=== PATIENT | male | born 1990 | race Hispanic/Latino ===

== ENCOUNTER 2025-04-14 23:03 | Emergency (ER) | payer SELFPAY ==
[2025-04-14 23:07] VITALS: BP 155/106
[2025-04-15 00:44] VITALS: BMI 27.8
[2025-04-15 00:46] VITALS: BP 144/95
[2025-04-15 00:50] LABS: Hematocrit 41.8 % (39.0-52.0); Hemoglobin 15.1 g/dL (13.0-18.0); Mean Corp Hgb Conc. 36.1 g/dL (33.0-37.0); Mean Corpuscular Volume 85.8 fL (80.0-94.0); Mean Platelet Volume 9.6 fL (7.4-10.4); Platelet Count 243 10^3/uL (130-400); Red Blood Cell Count 4.87 10^6/uL (4.70-6.10); Red Cell Dist. Width 11.6 % (11.5-14.5); White Blood Cell Count 10.3 10^3/uL (4.8-10.8)
[2025-04-15 01:03] LABS: Blood Urea Nitrogen 9 mg/dl (9-20); Calcium 9.8 mg/dl (8.4-10.2); Carbon Dioxide 26 mmol/L (22-30); Chloride 106 mmol/L (98-107); Estimated Creatinine Clearance > 125 ml/min; Glucose 98 mg/dl (70-99); Potassium 3.9 mmol/L (3.5-5.1); Sodium 141 mmol/L (135-145); eGFR > 60.00
--- NOTE | 2025-04-15 01:56 | ED.GENMED ---
History of Present Illness
General
Chief Complaint: Male Genito-Urinary Symptoms
Time Seen by Provider: 04/15/25 00:01
History of Present Illness
History of Present Illness:
Note:
CHIEF COMPLAINT(S)
Penile pain with a warm sensation during urination.
HISTORY OF PRESENT ILLNESS
The patient is a 35-year-old male who presents with penile pain. The onset of the pain occurred recently, beginning as mild and non-specific but becoming more pronounced today. The pain is primarily localized on the left side of the penis. The
patient describes the pain as superficial rather than deep and denies any recent trauma to the area. He reports no discharge, bleeding, or scrotal pain and notes that urination sometimes results in a warm sensation, though it does not exacerbate the
pain. The patient admits to using condoms consistently during sexual encounters, with a possibility of oral contact with two partners.
REVIEW OF SYSTEMS
- Genitourinary: Penile pain localized to the side, no discharge, occasional warm sensation during urination, no scrotal pain.
- Dermatological: No visible rash or redness on the skin of the penis.
PHYSICAL EXAM
- Genital Examination: No visible rash or redness observed on the penis.
- Nursing notes reviewed and vital signs reviewed.
PLAN
- Initiate urinalysis to assess for possible infection or other abnormalities in the urine.
DIFFERENTIAL DIAGNOSIS
The Differential Diagnosis includes, in no particular order and is not limited to:
1. Urinary Tract Infection
2. Urethritis
3. Genital Herpes
4. Peyronies Disease
5. Trauma (though patient denies this)
6. Contact Dermatitis
7. Balanitis
8. Sexually Transmitted Infection
9. Epididymitis (despite no scrotal pain reported)
10. Prostatitis
Disposition:
SUMMARY OF ENCOUNTER
A 35-year-old male presented to the emergency department with left-sided penile pain. He reported no discharge, bleeding, or scrotal pain, and emphasized consistent condom use, except during oral sex. The patient denied any recent trauma and noted
no visible rash or sores. A physical examination confirmed no obvious abnormalities such as discharge, rash, or sores, and revealed a full range of motion of the penis without any scrotal pain or suprapubic tenderness.
INDEPENDENT INTERPRETATION OF TESTS
My independent interpretation of the lab work is that it is 100% normal.
PLAN
Initiate urinalysis to assess for possible infection or other abnormalities in the urine.
MEDICAL DECISION MAKING
Number and Complexity of Problems Addressed: The patient presented with acute penile pain with potential causes ranging from urinary tract infection to sexually transmitted infections.
Data: The physical examination and laboratory work guided the diagnostic approach, ruling out immediate abnormalities with normal lab results.
Risk: The consideration for potential infection or other urogenital issues influenced the management plan.
Past History
Past History
ED Past Medical History: None; Negative Arrthythmia, GERD, IDDM or NIDDM
ED Past Surgical History: None
Social History
Personal: Single
Living: with family
Employment: Not employed
Phy Exam
Physical Exam
Physical Exam:
Physical Exam
Vital signs and allergy list reviewed and agreed with.
GENERAL: Alert , in minimal to no apparent distress
EYE: pupils equal, EOMI, anicteric
NECK: Supple, no significant adenopathy. No masses. Trachea midline
ENT: Oropharynx is clear, mmm.
CARDIAC: Regular rate and rhythm . No M/R/G
LUNGS: Clear breath sounds bilaterally, no acute respiratory distress, no wheezes/rales/rhonchi
ABDOMEN: Soft, without focal tenderness, no r/g, no cvat. Normal BSx4q
NEUROLOGICAL: Alert and oriented, no focal neuro deficits
SKIN: Warm and dry, skin intact.
MUSCULOSKELETAL: No edema, well perfused. Moves all 4 extremities
PSYCH: Normal and appropriate interaction.
Sepsis
Sepsis Screening
Sepsis Assessment: Sepsis Ruled Out
Sepsis Screen
Sepsis Screen: Sepsis Ruled Out
Date: 04/15/25
Time: 07:06
Course
Orders/Labs/Results
Orders:
Orders
04/14/25 23:30
Basic Metabolic Panel Urgent
Complete Blood Count/No Diff Urgent
Chlamydia/GC by PCR Urgent
[facility] Source: Urine
Specimen Description:
Source:: URINE
Date Specimen was Collected: 04/14/25
Time Specimen was Collected: 23:32
04/15/25 00:42
Urinalysis Reflex To Culture Urgent
Date Specimen was Collected: 04/14/25
Time Specimen was Collected: 23:32
Comment: ADD ON
Urine Microscopic Reflex Cult Urgent
04/15/25 02:24
Fosfomycin [Monurol] 3 gm PO ONCE ONE
Abnormal Lab Results
04/15/25
00:42
Urine Ketones 1+ A
(Negative)
Ur Occult Blood Reflex 3+ A
(Negative)
Urine RBC 3-6 A /HPF
(0-2)
Urine Albumin (Reflex) 2+ A
(Neg - Trace)
04/15/25 00:42
04/15/25 00:42
Vital Signs
Initial and Last Documented VS:
Initial Vital Signs
Temp Pulse Resp BP Pulse Ox
98.2 F 102 24 155/106 100
04/14/25 23:07 04/14/25 23:07 04/14/25 23:07 04/14/25 23:07 04/14/25 23:07
Last Documented Vital Signs
Temp Pulse Resp BP Pulse Ox
98.2 F 102 24 144/95 99
04/14/25 23:07 04/14/25 23:07 04/14/25 23:07 04/15/25 00:46 04/15/25 00:47
*Critical Care Note
Total Time (30-74mins, 75-104mins- exclusive of procedures): Not Applicable
Update Note
Update Note:
Urine had blood in it. Patient has no CVA tenderness. No abdominal pain whatsoever. 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 He will remain hydrated.
ED Attending Note
-
Portions of this chart may have been created with voice recognition software.� Occasional wrong word or��sound alike� substitutions may have occurred due to the inherent limitations of voice recognition software.
Discharge Plan
Departure
Patient Disposition: Home (Routine Discharge)
Date of Disposition: 04/15/25
Time of Disposition: 01:57
Patient with high blood pressure during this ER visit?: Yes
Condition: Fair
Discharge Problem:
Pain, penile, Hematuria
Instructions: Blood in the urine (hematuria) in adults, BLOOD PRESSURE
Prescriptions:
No Action
No Meds [No Current Medications]
famotidine 20 MG tablet
20 mg PO DAILY Qty: 10 0RF
lorazepam [Ativan] 1 MG tablet
1 mg PO TIDPRN PRN (Reason: anxiety) Qty: 7 0RF
Referrals:
NONE,* [Family Provider, Internal Medicine]
Ced Mejía Jr., MD [Active, Urology]
Activity Restrictions/Additional Instructions:
Thank You for choosing [facility].
It was a pleasure meeting you and taking part in your care. We hope for your continued healing and wellness.
Please read discharge instructions in their entirety. However, they are for general education and may not describe your exact diagnosis at discharge. Information on your ER visit and medical conditions were discussed with you along with appropriate
follow up information...
If indicated, please take your medications as instructed and indicated on discharge paperwork.
Please schedule a follow up appointment as directed. Call to schedule an appointment
Please return to the emergency department with ANY change in, persisting, or worsening of symptoms. If any of your symptoms do not improve, or persist, or become more severe within 6-12 hours, please return to the emergency department for further
care.
Please return to the emergency department if you develop a headache, neck pain/stiffness, fever greater than 100.4F, chest pain, shortness of breath, persistent nausea, vomiting, slurred speech, difficulty walking, numbness/tingling, weakness, signs
of infection or any other symptoms that are worrisome to you.
If you have any questions or concerns please do not hesitate to call the Hospital at or E-mail me directly at [email or web address]
Interventions
Interventions:
*Risk Screen - Suicide Last Done: 04/14/25 23:07
*General Assessment Last Done: 04/15/25 00:45
*Neglect/Abuse Screening Last Done: 04/14/25 23:07
*ED- Fall Risk Assessment Last Done: 04/15/25 00:45
*ED COVID-19 Vaccine History Last Done: 04/15/25 00:45
*Nursing Disposition Last Done: 04/15/25 02:33
ED-Male Genitourinary Assessment Last Done: 04/15/25 00:45
Discharge Date and Time
Discharge Date/Time: 04/15/25 02:38
Print Language: SENEGALESE
[2025-04-15 02:10] LABS: Urine Albumin 2+ (Neg - Trace); Urine Bilirubin Negative (Negative); Urine Character Clear (Clear); Urine Color Yellow; Urine Glucose Negative (Negative); Urine Ketone 1+ (Negative); Urine Leukocyte Negative (Negative); Urine Nitrite Negative (Negative); Urine Occult Blood 3+ (Negative); Urine Urobilinogen 1+ (Neg - 1+)
[2025-04-15 02:18] LABS: Urine Squamous Cell None seen /LPF (Few); Urine White Cell 0-2 /HPF (0-5)
[2025-04-15] MEDS: MONUROL 3 GM PO (02:28)
== END 2025-04-15 02:38 | disposition home or self-care (01) ==
LOC: EMR 23:03
PROVIDERS: Physician Assistant; EMERGENCY PHYSICIAN Student in an Organized Health Care Education/Training Program
DX: N48.89 Other specified disorders of penis (principal); R31.9 Hematuria, unspecified; R03.0 Elevated blood-pressure reading, without diagnosis of hypertension
CPT/HCPCS: 99283; 80048; 81003; 81015; 85027; 87491; 87591

== ENCOUNTER 2025-05-21 17:50 | Emergency (ER) | payer OTHER, SELFPAY ==
[2025-05-21 17:58] VITALS: BP 180/117
[2025-05-21 18:12] LABS: Hematocrit 43.8 % (39.0-52.0); Hemoglobin 15.7 g/dL (13.0-18.0); Mean Corp Hgb Conc. 35.8 g/dL (33.0-37.0); Mean Corpuscular Volume 86.2 fL (80.0-94.0); Nucleated Red Blood Cells % 0 % (-); Platelet Count 253 10^3/uL (130-400); Red Cell Dist. Width 11.6 % (11.5-14.5)
[2025-05-21 18:39] LABS: ALT (SGPT) 17 U/L (0-50); AST (SGOT) 17 U/L (17-59); Albumin 4.8 g/dl (3.5-5.0); Alkaline Phosphatase 50 U/L (38-126); Blood Urea Nitrogen 10 mg/dl (9-20); Calcium 9.8 mg/dl (8.4-10.2); Carbon Dioxide 32 mmol/L (22-30); Chloride 103 mmol/L (98-107); Glucose 129 mg/dl (70-99); Potassium 4.2 mmol/L (3.5-5.1); Sodium 139 mmol/L (135-145); Total Protein 8.0 g/dl (6.3-8.2); eGFR > 60.00
--- NOTE | 2025-05-21 20:11 | ED.GENMED ---
History of Present Illness
General
Chief Complaint: Generalized Pain
Time Seen by Provider: 05/21/25 20:10
History of Present Illness
History of Present Illness:
TIME OF INITIAL EVALUATION
- 8:15 PM
REVIEW OF OLD RECORDS
- I reviewed records, the patient was evaluated for hematuria 1 month ago. He was given fosfomycin at that time but there was not any clear sign of infection. At that time, gonorrhea/chlamydia negative.
Note:
CHIEF COMPLAINT(S)
Pain in the flank areas, bumps on the back.
HISTORY OF PRESENT ILLNESS
The patient is a 35-year-old male presenting with a bump on the back that has been present for approximately six to seven months. Upon examination, the bump appears to be a small cyst, potentially a sebaceous cyst, which is described as benign and
common. The patient reports that someone attempted to express the contents of the bump in the past. The bump has a consistency of sebum, a benign substance.
Additionally, the patient mentions flank pain on both sides, but there is no tenderness upon palpation. The patients previous visit revealed trace blood in the urine, but sexually transmitted disease tests then were negative, and a one-time dose of
antibiotics was administered, although there was no conclusive evidence of infection.
The patient reports experiencing mild abdominal discomfort but notes a high tolerance for pain. The patient expresses concern about the bumps but has been reassured that these bumps are common and benign, without concerning features for infection or
malignancy.
EXTERNAL RECORDS REVIEWED
Blood work was completed and reviewed during this visit and results were normal. Urine testing from a previous visit revealed trace blood, but tests for sexually transmitted diseases were negative. An antibiotic, Ceftriaxone, was administered at
that time.
PHYSICAL EXAM
General: Alert, no acute distress.
Skin: Warm, dry.
Head: Normocephalic, atraumatic.
Neck: Supple, trachea midline.
Eye Ears, nose, mouth, and throat: Oral mucosa moist.
Cardiovascular: Normal peripheral perfusion, No edema.
Respiratory: Respirations are non-labored.
Gastrointestinal: Abdomen non-distended, patient reports mild discomfort.
Back: Normal range of motion, Normal alignment. Palpation of the back reveals the presence of a small, non-tender cystic lesion.
Musculoskeletal: Normal range of motion, normal strength.
Neurological: Alert and oriented to person, place, time, and situation, No focal neurological deficit observed.
Psychiatric: Cooperative, appropriate mood & affect.
PLAN
Reassure the patient regarding the benign nature of the sebaceous cysts.
No immediate intervention is required as the cysts are not causing significant symptoms or complications.
Monitor the flank pain and abdominal discomfort, although the initial tests do not suggest a significant concern.
Further consultation could be considered if symptoms persist or worsen.
DIFFERENTIAL DIAGNOSIS
The Differential Diagnosis includes, in no particular order and is not limited to:
1. Sebaceous cyst
2. Lipoma
3. Folliculitis
4. Epidermoid cyst
5. Pseudocyst
6. Simple renal cyst (unrelated to flank pain but considered for cystic content presence)
7. Musculoskeletal strain (for flank pain)
8. Kidney stones (for flank pain with history of trace hematuria)
9. Urinary tract infection (despite negative infection signs, given urinary symptoms)
10. Hernia (considered due to abdominal discomfort)
LABS
- CBC unremarkable, chemistries unremarkable, bicarb slightly high at 32
UPDATE
- I did express sebum from the subcentimeter cystic lesion on his back.
SUMMARY OF ENCOUNTER
The patient, a 35-year-old male, presented to the emergency department with concerns about elevated blood pressure and a bump on his back. The patient reported a history of elevated blood pressure but had only recently obtained health insurance,
allowing him to seek medical attention. The blood pressure was initially high upon arrival but was later found to be close to normal. A sebaceous cyst on the patients back, measuring small and not concerning for infection or malignancy, was noted,
and it was confirmed not to require immediate intervention. The blood work conducted revealed normal white blood cell count, hemoglobin, and chemistry levels. The patients anxiety about his health status was acknowledged, and reassurance was
provided that no alarming issues were found.
DISPOSITION
Discharge.
PLAN
Recommend the patient see a primary care physician to monitor and manage blood pressure regularly, as it was slightly elevated. Further evaluation and monitoring of the sebaceous cyst were deemed unnecessary, given its benign nature. Encourage
regular follow-up for overall health and potential management of hypertension if needed.
INDEPENDENT REVIEW OF LABS AND INTERPRETATION OF TESTS
My independent review of the laboratory results indicates normal white blood cell count, normal hemoglobin levels, and normal chemistry levels. There is no evidence of infection or other acute concerns.
PATIENT EDUCATION AND COUNSELING
The patient was educated on the benign nature of the sebaceous cyst and that it does not require any immediate treatment. He was reassured about his blood pressure readings, which were close to normal, and advised that it would be beneficial to
follow up with a primary care physician for ongoing monitoring and possible management.
FOLLOW-UP INSTRUCTIONS
The patient was advised to establish care with a primary care physician to discuss ongoing management of blood pressure and general health monitoring.
MEDICAL DECISION MAKING
-Complexity of Data Reviewed:
Chronic conditions affecting care [slightly elevated blood pressure]. Differential diagnosis includes sebaceous cyst, musculoskeletal strain, anxiety-related symptoms.
-Data:
Category 1:
Reviewed external records revealing normal blood work results with no alarming findings. Discussed patients history and support for monitoring blood pressure with primary care.
Category 2:
No additional imaging or EKG was required as the conditions were assessed to be non-threatening upon evaluation.
-Risk:
Prescription medication was considered for blood pressure management. However, given the normal readings upon reevaluation, medication was not prescribed immediately.
DIAGNOSIS
1. Mildly elevated blood pressure, potentially anxiety-related - ICD-10: R03.0
2. Sebaceous cyst - ICD-10: L72.3
Past History
Past History
ED Past Medical History: None; Negative Arrthythmia, GERD, IDDM or NIDDM
ED Past Surgical History: None
Social History
Personal: Single
Living: with family
Employment: Not employed
Phy Exam
Physical Exam
Physical Exam:
See HPI
Course
Orders/Labs/Results
Orders:
Orders
05/21/25 18:05
Complete Blood Count/With Diff Urgent
Comprehensive Metabolic Panel Urgent
Abnormal Lab Results
05/21/25
18:05
Carbon Dioxide 32 H mmol/L
(22-30)
Glucose 129 H mg/dl
(70-99)
05/21/25 18:05
05/21/25 18:05
Vital Signs
Initial and Last Documented VS:
Initial Vital Signs
Temp Pulse Resp BP Pulse Ox
37.5 C 89 16 180/117 98
05/21/25 17:58 05/21/25 17:58 05/21/25 17:58 05/21/25 17:58 05/21/25 17:58
Last Documented Vital Signs
Temp Pulse Resp BP Pulse Ox
37.5 C 89 16 180/117 98
05/21/25 17:58 05/21/25 17:58 05/21/25 17:58 05/21/25 17:58 05/21/25 20:12
*Pulse Oximetry
SaO2: 98
Oxygen Mode of Delivery: Room air
Patient hypoxic: no
*Critical Care Note
Total Time (30-74mins, 75-104mins- exclusive of procedures): Not Applicable
ED Attending Note
-
Portions of this chart may have been created with voice recognition software.� Occasional wrong word or��sound alike� substitutions may have occurred due to the inherent limitations of voice recognition software.
Discharge Plan
Departure
Patient Disposition: Home (Routine Discharge)
Date of Disposition: 05/21/25
Time of Disposition: 20:33
Patient with high blood pressure during this ER visit?: Yes
Discharge Problem:
Sebaceous cyst
Instructions: Epidermal Cyst (DC), BLOOD PRESSURE
Prescriptions:
No Action
No Meds [No Current Medications]
famotidine 20 MG tablet
20 mg PO DAILY Qty: 10 0RF
lorazepam [Ativan] 1 MG tablet
1 mg PO TIDPRN PRN (Reason: anxiety) Qty: 7 0RF
Activity Restrictions/Additional Instructions:
The small little cysts on the back appear to be sebaceous cysts�these are benign. These are very small currently and do not feel you need any further treatment for these. Your blood pressure initially was rather high but on reevaluation it was
close to normal. Your basic blood work is normal. I strongly recommend you follow-up with primary care doctor.
Interventions
Interventions:
*Risk Screen - Suicide Last Done: 05/21/25 18:01
*Neglect/Abuse Screening Last Done: 05/21/25 18:01
Discharge Date and Time
Print Language: ARGENTINE
[2025-05-21 20:46] VITALS: BP 129/84
== END 2025-05-21 20:49 | disposition home or self-care (01) ==
LOC: EMR 17:50
PROVIDERS: Emergency Medicine; EMERGENCY PHYSICIAN Emergency Medicine
DX: L72.3 Sebaceous cyst (principal); R03.0 Elevated blood-pressure reading, without diagnosis of hypertension
CPT/HCPCS: 99283; 80053; 85025